=== PATIENT | male | born 1945 | race Caucasian/White ===

== ENCOUNTER 2018-07-15 06:35 | Day surgery (SDC) | payer MEDICARE, OTHER ==
[2018-07-14 16:15] LABS: CREATININE 0.8 mg/dL (0.5-1.5); POTASSIUM 4.5 mmol/L (3.5-5.1)
[2018-07-14 17:00] VITALS: BP 142/73
[2018-07-14] MEDS: CEFAZOLIN SODIUM 1 GM VIAL IVP SCH (17:45)
[2018-07-15] VITALS (14 sets, daily range): BP systolic 111–149; BP diastolic 55–74
[~2018-07-15] VITALS: Ht 188 cm; Wt 82.4 kg
[~2018-07-15 06:35] MED LIST: ALEN70TA10 PO; APIX5TAB PO; ASPI-555 PO; ATOR40TA71 PO; FAMILY TO BRING; HYDR-4068 PO; IPRA42SP NS; METO50TA9 PO; OXYB10TA PO; SERT50TA12 PO; TAMS0.4C32 PO; TRAZ-187 PO; ZOLP12.550 PO
[2018-07-15] MEDS ORDERED: LACTATED RINGERS 1000ML 1,000 ML IV ONE (07:57)
[2018-07-15] MEDS ORDERED: FENTANYL CITRATE PF 50 MCG/1 ML 2ML VIAL ONE ×2 (09:10→11:19)
[2018-07-15] MEDS ORDERED: PROPOFOL 10 MG/ML 20ML VIAL IV ONE (09:10)
[2018-07-15] MEDS ORDERED: MIDAZOLAM HCL 1 MG/ML 2ML VIAL ONE (09:10)
[2018-07-15] MEDS ORDERED: CEFAZOLIN SODIUM 1 GM VIAL ONE (09:12)
[2018-07-15] MEDS ORDERED: ROCURONIUM 10MG/1ML SYR 10 MG/ML ML ONE (09:17)
[2018-07-15] MEDS ORDERED: LIDOCAINE PF 2% 5ML ABBOJECT ONE (09:17)
[2018-07-15] MEDS ORDERED: BUPIVACAINE/PF 0.25% 30ML VIAL IJ ONE (09:39)
[2018-07-15] MEDS: CEFAZOLIN SODIUM 1 GM VIAL IVP SCH (09:55)
[2018-07-15] MEDS ORDERED: ONDANSETRON HCL 4 MG/2 ML VIAL ONE (10:03)
[2018-07-15] MEDS ORDERED: DEXAMETHASONE SOD PHOSPHATE 4 MG/ML 1ML VIAL ONE (10:03)
[2018-07-15] MEDS ORDERED: GLYCOPYRROLATE 1 MG/5 ML SYRINGE ONE (10:23)
[2018-07-15] MEDS ORDERED: EPHEDRINE SULFATE 50 MG/ML AMPULE ONE (10:24)
[2018-07-15] MEDS ORDERED: NEOSTIGMINE 5MG/5ML SYR IV ONE (12:03)
[2018-07-15] MEDS ORDERED: CEPH500B PO (12:24)
[2018-07-15] MEDS ORDERED: HYDR-4457 PO (12:24)
[2018-07-15] MEDS ORDERED: MORPHINE SULFATE 2 MG/ML 1ML SYG ONE (12:50)
[2018-07-15] MEDS ORDERED: MEPERIDINE-PF 25 MG/ML SYG ONE ×2 (13:05→13:18)
[2018-07-15] MEDS ORDERED: KETOROLAC TROMETHAMINE 30MG/ML ONE (13:18)
== END 2018-07-15 14:56 | disposition home or self-care (01) ==
LOC: DAH 06:35
PROVIDERS: ATTEND Orthopaedic Surgery
DX: M19.041 Primary osteoarthritis, right hand (principal); Z86.73 Personal history of transient ischemic attack (TIA), and cerebral infarction without residual deficits; M81.0 Age-related osteoporosis without current pathological fracture; I25.10 Atherosclerotic heart disease of native coronary artery without angina pectoris; Z79.899 Other long term (current) drug therapy; Z98.890 Other specified postprocedural states; D68.69 Other thrombophilia; G90.09 Other idiopathic peripheral autonomic neuropathy; I48.2 Chronic atrial fibrillation; I10 Essential (primary) hypertension; Z79.01 Long term (current) use of anticoagulants; Z98.84 Bariatric surgery status; K21.9 Gastro-esophageal reflux disease without esophagitis; E78.2 Mixed hyperlipidemia; F32.1 Major depressive disorder, single episode, moderate
CPT/HCPCS: 26850; 36415; 76000; 80048; A4218; A4606; A4649 ×2; A6223; C1713 ×5; J0690 ×2; J1100; J1885; J2001; J2175 ×2; J2250; J2405; J2704; J2710; J3010 ×2; J3490 ×2; J7120; Q4051

== ENCOUNTER → 2018-09-06 | Outpatient (CLI) | payer MEDICARE, OTHER ==
[~2018-09-06] MED LIST changes: +CEPH500B PO; +HYDR-4457 PO
== END | disposition home or self-care (01) ==
LOC: RAH 10:49
PROVIDERS: ATTEND Family Medicine
DX: S32.000A Wedge compression fracture of unspecified lumbar vertebra, initial encounter for closed fracture (principal); M51.06 Intervertebral disc disorders with myelopathy, lumbar region; M47.815 Spondylosis without myelopathy or radiculopathy, thoracolumbar region; J98.11 Atelectasis; X58.XXXA Exposure to other specified factors, initial encounter; Y93.89 Activity, other specified; Y92.89 Other specified places as the place of occurrence of the external cause; Y99.8 Other external cause status
CPT/HCPCS: 71046

== ENCOUNTER → 2018-10-03 | Outpatient (CLI) | payer MEDICARE, OTHER | END | disposition home or self-care (01) | LOC: OIH 10:05 | PROVIDERS: ATTEND Neuromusculoskeletal Medicine & OMM | DX: M85.88 Other specified disorders of bone density and structure, other site (principal); M47.812 Spondylosis without myelopathy or radiculopathy, cervical region; M48.02 Spinal stenosis, cervical region | CPT/HCPCS: 72040 ==

== ENCOUNTER → 2019-03-14 | Outpatient (CLI) | payer MEDICARE, OTHER ==
[~2019-03-14] MED LIST changes: -OXYB10TA PO; +OXYB10TA2 PO
== END | disposition home or self-care (01) ==
LOC: RAH 13:02
PROVIDERS: ATTEND Neuromusculoskeletal Medicine & OMM
DX: M48.56XA Collapsed vertebra, not elsewhere classified, lumbar region, initial encounter for fracture (principal); M40.294 Other kyphosis, thoracic region; M47.812 Spondylosis without myelopathy or radiculopathy, cervical region; M47.816 Spondylosis without myelopathy or radiculopathy, lumbar region; M48.07 Spinal stenosis, lumbosacral region; R29.6 Repeated falls; Z98.890 Other specified postprocedural states
CPT/HCPCS: 72128; 72131

== ENCOUNTER → 2019-09-14 | Outpatient (CLI) | payer MEDICARE ==
[~2019-09-14] MED LIST changes: -OXYB10TA2 PO; +OXYB10TA30 PO; +REGADENOSON 0.4 MG/5 ML PF SYG IVP SCH
== END | disposition home or self-care (01) ==
LOC: RAH 08:41
PROVIDERS: ATTEND Internal Medicine Cardiovascular Disease
DX: I20.9 Angina pectoris, unspecified (principal)
CPT/HCPCS: 78452; 93017; A9500 ×2; J2785; 96374

== ENCOUNTER 2020-03-29 13:47 | Inpatient (IN) | payer MEDICARE ==
[~2020-03-29] VITALS: Ht 188 cm; Wt 92.9 kg
[~2020-03-29 13:47] MED LIST changes: -ALEN70TA10 PO; +ALEN70TA69 PO; -ASPI-555 PO; +ASPI-556 PO; -REGADENOSON 0.4 MG/5 ML PF SYG IVP SCH; -ZOLP12.550 PO; +ZOLP12.555 PO
[2020-03-29] MEDS ORDERED: ONDANSETRON HCL 4 MG/2 ML VIAL ONE (14:13)
[2020-03-29] MEDS ORDERED: MORPHINE SULFATE 4 MG/1ML SYG ONE (14:13)
[2020-03-29] MEDS ORDERED: SODIUM CHLORIDE 0.9% 1000ML 1,000 ML IV ONE (16:00)
[2020-03-29 16:02] LABS: BASOPHILS % (AUTO) 0.1 % (0.0-5.0); EOSINOPHILS % (AUTO) 0.3 % (0.0-8.0); HEMATOCRIT 36.6 % (42-54); LYMPHOCYTES % (AUTO) 8.8 % (21.0-51.0); MEAN CORPUSCULAR HEMOGLOBIN 30.7 pg (27.0-33.0); MEAN CORPUSCULAR HGB CONC 32.5 g/dL (32.0-36.0); MEAN CORPUSCULAR VOLUME 94.6 fL (79-99); MONOCYTES % (AUTO) 7.3 % (3.0-13.0); NEUTROPHILS % (AUTO) 83.1 % (40.0-77.0); PLATELET COUNT (AUTO) 115 K/uL (130-400); RED BLOOD CELL COUNT(AUTO) 3.87 MIL/uL (4.50-6.20); WHITE BLOOD COUNT (AUTO) 6.8 K/uL (4.8-10.8)
[2020-03-29 16:14] LABS: POTASSIUM 3.8 mmol/L (3.5-5.1)
[2020-03-29 16:18] LABS: INR 0.95 (0.85-1.15); PARTIAL THROMBOPLASTIN TIME 25.8 SEC (26.3-35.5); PROTHROMBIN TIME 10.3 SEC (9.6-11.6)
[2020-03-29 16:19] LABS: BILIRUBIN,TOTAL 0.7 mg/dL (0.2-1.0)
[2020-03-29] MEDS ORDERED: HYDRALAZINE HCL 20 MG/ML VIAL IV PRN (17:15)
[2020-03-29] MEDS ORDERED: ACETAMINOPHEN 325 MG TAB PO PRN ×2 (17:15)
[2020-03-29] MEDS ORDERED: MEPERIDINE-PF 25 MG/ML SYG IV PRN (17:15)
[2020-03-29] MEDS ORDERED: ONDANSETRON HCL 4 MG/2 ML VIAL IV PRN (17:15)
[2020-03-29] MEDS: SODIUM CHLORIDE 0.9% 1000ML 1,000 ML IV SCH (17:15)
[2020-03-29] MEDS ORDERED: FAMOTIDINE/PF 20 MG/2 ML VIAL IV ONE (19:46)
[2020-03-29] MEDS ORDERED: MORPHINE SULFATE 2 MG/ML 1ML SYG ONE (19:46)
[2020-03-29] MEDS: FAMOTIDINE/PF 20 MG/2 ML VIAL IV SCH (21:00)
[2020-03-30] VITALS (7 sets, daily range): BP systolic 132–146; BP diastolic 57–68
--- NOTE | 2020-03-30 | NUR ---
ADMIT NOTE ADMIT TO ROOM 332 VIA STRETCHER FROM ER. PATIENT AWAKE, ALERT, OX3, NO SOB, NO C/O PAIN WITHOUT MOVEMENT, LEFT AC 18 GAUGE CATHETER PATENT WITH IVF INFUSING WELL, TEACH PATIENT PLAN OF CARE AND EXPECTED OUTCOME, PATIENT VERBALIZES UNDERSTANDING VIA TEACH BACK
[2020-03-30] MEDS ORDERED: BUPR-47 PO (00:05)
[2020-03-30] MEDS ORDERED: METO25TA6 PO (00:05)
[2020-03-30] MEDS ORDERED: ROSU20TA31 PO (00:05)
[2020-03-30] MEDS ORDERED: FURO20TA4 PO (00:05)
[2020-03-30] MEDS: MORPHINE SULFATE 2 MG/ML 1ML SYG IV PRN ×5 (03:56→20:07)
[2020-03-30] MEDS: SODIUM CHLORIDE 0.9% 1000ML 1,000 ML IV SCH ×2 (05:27→17:05)
[2020-03-30 05:49] LABS: BASOPHILS % (AUTO) 0.4 % (0.0-5.0); EOSINOPHILS % (AUTO) 2.4 % (0.0-8.0); LYMPHOCYTES % (AUTO) 13.5 % (21.0-51.0); MEAN CORPUSCULAR HEMOGLOBIN 30.1 pg (27.0-33.0); MEAN CORPUSCULAR HGB CONC 31.3 g/dL (32.0-36.0); MEAN CORPUSCULAR VOLUME 96.3 fL (79-99); MONOCYTES % (AUTO) 5.5 % (3.0-13.0); NEUTROPHILS % (AUTO) 77.8 % (40.0-77.0); PLATELET COUNT (AUTO) 105 K/uL (130-400); RED BLOOD CELL COUNT(AUTO) 4.05 MIL/uL (4.50-6.20); RED CELL DISTRIBUTION WIDTH 13.1 % (11.0-15.5); WHITE BLOOD COUNT (AUTO) 4.6 K/uL (4.8-10.8)
[2020-03-30 06:33] LABS: ALBUMIN 2.8 g/dL (3.5-5.0); BILIRUBIN,TOTAL 1.1 mg/dL (0.2-1.0); CREATININE 0.8 mg/dL (0.5-1.5); POTASSIUM 4.3 mmol/L (3.5-5.1); TOTAL PROTEIN, SERUM 5.8 g/dL (6.0-8.3)
[2020-03-30] MEDS: METOPROLOL TARTRATE 25 MG TAB PO SCH ×3 (08:47→20:12)
[2020-03-30] MEDS: FUROSEMIDE 20 MG TABLET PO SCH (08:47)
[2020-03-30] MEDS: FAMOTIDINE/PF 20 MG/2 ML VIAL IV SCH ×2 (08:47→20:07)
[2020-03-30] MEDS: **HM** BUPROPION XL 150MG PO SCH (09:00)
[2020-03-30] MEDS ORDERED: ALENDRONATE SODIUM 35 MG TAB PO SCH (09:00)
[2020-03-30 09:49] LABS: ACETAMINOPHEN 3 mcg/mL (10-29)
[2020-03-30 09:51] LABS: SALICYLATE < 2.8 mg/dL (2.8-20.0)
--- NOTE | 2020-03-30 10:12 | NUR ---
DR. LEDEZMA AWARE OF CONSULT MARKING MACHINE OPERATOR Nhung ARNOLD SPOKE TO MD VIA TELEPHONE REGARDING CONSULT.
--- NOTE | 2020-03-30 10:13 | NUR ---
DR. RASHEED AWARE OF CONSULT SPOKE TO MD VIA TELEPHONE REGARDING CONSULT.
--- NOTE | 2020-03-30 15:05 | NUR ---
MET WITH PATIENT AT BEDSIDE, FOR D/C PLANNING PATIENT LIVES WITH SPOUSE GINNY AND IS INDEPENDENT OF ADLS, DRIVES, AND USES MOBILITY AIDES NEEDED SUCH WALKER, ROLLATOR, W/CHAIR, AND CANE. NO PROVIDER OR HOME HEALTH SERVICES, HOME W/ SAFE & ACCESSIBLE WITH SHOWER CHAIR, STATES HAS BEEN TO [facility] IN THE PAST AND WOULD LIKE TO GO THERE AFTER SURGERY. FELIPA RECD AND PLACED IN CHART. IUPDATED PRIMARY RN TO LET HER KNOW THAT WILL POSSIBLE BE THE PLAN. Addendum: 03/30/20 at 1513 by LAVELLE CARREON RN Amended: Links added.
[2020-03-30 17:04] LABS: APPEARANCE,URINE Clear (CLEAR); BILIRUBIN,URINE Negative (NEGATIVE); COLOR,URINE Yellow (YELLOW); GLUCOSE, URINE (UA) Negative (NEGATIVE); KETONES,URINE Trace mg/dL (NEGATIVE); LEUKOCYTE ESTERASE ,URINE Negative (NEGATIVE); NITRATE,URINE Negative (NEGATIVE); OCCULT BLOOD,URINE Negative (NEGATIVE); PH,URINE 5.5 (5.0-8.0); PROTEIN,URINE Negative (NEGATIVE)
[2020-03-30 17:11] LABS: AMPHET/METH SCREEN,URINE NEGATIVE (NEGATIVE); BARBITURATE SCREEN, URINE NEGATIVE (NEGATIVE); BENZODIAZEPINES SCREEN,URINE NEGATIVE (NEGATIVE); CANNABINOID SCREEN,URINE NEGATIVE (NEGATIVE); COCAINE SCREEN,URINE NEGATIVE (NEGATIVE); OPIATE SCREEN,URINE POSITIVE (NEGATIVE); PHENCYCLIDINE SCREEN,URINE NEGATIVE (NEGATIVE)
[2020-03-30 17:48] LABS: ALBUMIN 2.9 g/dL (3.5-5.0); BILIRUBIN,DIRECT 0.3 mg/dL (0.0-0.3); TOTAL PROTEIN, SERUM 5.9 g/dL (6.0-8.3)
[2020-03-30] MEDS: APIXABAN 5 MG TABLET PO SCH (20:07)
[2020-03-30] MEDS: OXYBUTYNIN 5 MG TAB.SR.24H PO SCH (20:07)
[2020-03-30] MEDS: TAMSULOSIN HCL 0.4 MG CAP.ER.24H PO SCH (20:07)
[2020-03-30] MEDS ORDERED: ATORVASTATIN CALCIUM 40 MG TABLET PO SCH (21:00)
[2020-03-31] MEDS: MORPHINE SULFATE 2 MG/ML 1ML SYG IV PRN ×5 (00:16→16:46)
[2020-03-31 04:18] VITALS: BP 126/60
[2020-03-31 05:36] LABS: BASOPHILS % (AUTO) 0.3 % (0.0-5.0); EOSINOPHILS % (AUTO) 1.3 % (0.0-8.0); HEMATOCRIT 38.5 % (42-54); LYMPHOCYTES % (AUTO) 10.2 % (21.0-51.0); MEAN CORPUSCULAR HEMOGLOBIN 30.2 pg (27.0-33.0); MEAN CORPUSCULAR HGB CONC 31.4 g/dL (32.0-36.0); MONOCYTES % (AUTO) 7.6 % (3.0-13.0); NEUTROPHILS % (AUTO) 80.1 % (40.0-77.0); PLATELET COUNT (AUTO) 102 K/uL (130-400); RED BLOOD CELL COUNT(AUTO) 4.01 MIL/uL (4.50-6.20); WHITE BLOOD COUNT (AUTO) 7.6 K/uL (4.8-10.8)
[2020-03-31 05:47] LABS: ALBUMIN 2.5 g/dL (3.5-5.0); BILIRUBIN,TOTAL 1.4 mg/dL (0.2-1.0); CREATININE 0.9 mg/dL (0.5-1.5); MAGNESIUM 1.9 mg/dL (1.80-2.40); POTASSIUM 4.3 mmol/L (3.5-5.1); TOTAL PROTEIN, SERUM 5.7 g/dL (6.0-8.3)
[2020-03-31] MEDS ORDERED: ALENDRONATE SODIUM 35 MG TAB PO SCH (07:30)
[2020-03-31 07:52] VITALS: BP 123/54
[2020-03-31] MEDS: APIXABAN 5 MG TABLET PO SCH ×2 (08:25→20:30)
[2020-03-31] MEDS: METOPROLOL TARTRATE 25 MG TAB PO SCH ×3 (08:25→20:30)
[2020-03-31] MEDS: FAMOTIDINE 20MG TAB 20 MG TAB PO SCH ×2 (08:25→20:30)
[2020-03-31] MEDS: FUROSEMIDE 20 MG TABLET PO SCH (08:28)
[2020-03-31] MEDS: **HM** BUPROPION XL 150MG PO SCH (08:29)
[2020-03-31] MEDS: SODIUM CHLORIDE 0.9% 1000ML 1,000 ML IV SCH ×2 (09:15→17:36)
[2020-03-31 12:09] VITALS: BP 129/64
[2020-03-31 16:31] VITALS: BP 123/69
[2020-03-31] MEDS ORDERED: POLYETHYLENE GLYCOL 3350 17 GM POWD.PACK ONE (16:56)
[2020-03-31] MEDS: POLYETHYLENE GLYCOL 3350 17 GM POWD.PACK PO SCH (17:00)
[2020-03-31] MEDS ORDERED: SENNOSIDES 8.6 MG TABLET PO SCH (17:15)
[2020-03-31 20:18] VITALS: BP 117/66
[2020-03-31] MEDS: OXYBUTYNIN 5 MG TAB.SR.24H PO SCH (20:30)
[2020-03-31] MEDS: TAMSULOSIN HCL 0.4 MG CAP.ER.24H PO SCH (20:30)
[2020-03-31 23:59] VITALS: BP 133/76
[2020-04-01] MEDS: MORPHINE SULFATE 2 MG/ML 1ML SYG IV PRN ×6 (00:53→21:16)
[2020-04-01 04:09] VITALS: BP 146/72
[2020-04-01 06:28] LABS: BASOPHILS % (AUTO) 0.3 % (0.0-5.0); EOSINOPHILS % (AUTO) 1.5 % (0.0-8.0); HEMATOCRIT 38.9 % (42-54); LYMPHOCYTES % (AUTO) 12.6 % (21.0-51.0); MEAN CORPUSCULAR HGB CONC 31.9 g/dL (32.0-36.0); NEUTROPHILS % (AUTO) 75.2 % (40.0-77.0); PLATELET COUNT (AUTO) 101 K/uL (130-400); RED BLOOD CELL COUNT(AUTO) 4.14 MIL/uL (4.50-6.20); RED CELL DISTRIBUTION WIDTH 12.9 % (11.0-15.5); WHITE BLOOD COUNT (AUTO) 7.1 K/uL (4.8-10.8)
[2020-04-01 06:46] LABS: ALBUMIN 2.3 g/dL (3.5-5.0); BILIRUBIN,TOTAL 1.2 mg/dL (0.2-1.0); CREATININE 0.7 mg/dL (0.5-1.5); POTASSIUM 4.1 mmol/L (3.5-5.1); TOTAL PROTEIN, SERUM 5.9 g/dL (6.0-8.3)
[2020-04-01 08:05] VITALS: BP 156/67
[2020-04-01] MEDS: **HM** BUPROPION XL 150MG PO SCH (08:58)
[2020-04-01] MEDS ORDERED: SENNOSIDES 8.6 MG TABLET PO SCH (09:00)
[2020-04-01] MEDS: FAMOTIDINE 20MG TAB 20 MG TAB PO SCH ×2 (09:02→21:07)
[2020-04-01] MEDS: APIXABAN 5 MG TABLET PO SCH ×2 (09:02→21:07)
[2020-04-01] MEDS: METOPROLOL TARTRATE 25 MG TAB PO SCH ×3 (09:02→21:07)
[2020-04-01] MEDS: POLYETHYLENE GLYCOL 3350 17 GM POWD.PACK PO SCH (09:03)
[2020-04-01] MEDS: FUROSEMIDE 20 MG TABLET PO SCH (09:03)
[2020-04-01 11:45] VITALS: BP 153/82
--- NOTE | 2020-04-01 14:01 | NUR ---
NUTRITION EDUCATION RD provided Osteoporosis nutrition education. Pt listed nutritional supplements/medications (Iron, Vitamin C, Vitamin D, Alendronate sodium). RD discussed Vitamin D, Calcium, and mineral rich foods with Pt. All Pt questions were answered. Pt verbalized understanding. RD encouraged Pt to notify as additional nutrition questions or concerns arise. Addendum: 04/01/20 at 1410 [address]ÓN [address]Z [address] RD Amended: Links added.
--- NOTE | 2020-04-01 14:10 | NUR ---
NUTRITION NOTE: Pt admitted s/p fall with intractable right Hip pain. Pt history of osteoporosis. Pt reports unable to have surgery. Senna and miralax medications in place. Pt with improving appetite. Pt still agrees to nutrition supplementation with Chocolate Ensure BID. Monitored labs: Ca 8.0, T. Bili 1.2, AST 42. ALT 198, Alk 189, Alb 2.3. Recommend Ensure BID RD to continue to monitor. Please notify as additional nutrition concerns arise.
[2020-04-01] MEDS ORDERED: HYDROMORPHONE HCL 0.5 MG/0.5 ML ML IVP SCH (14:45)
[2020-04-01] MEDS: LUBIPROSTONE 24 MCG CAP PO SCH ×2 (16:08→17:00)
[2020-04-01 16:17] VITALS: BP 136/57
[2020-04-01] MEDS ORDERED: LIDOCAINE 5% TOPICAL PATCH TP PRN (17:00)
[2020-04-01] MEDS ORDERED: CYCLOBENZAPRINE HCL 10 MG TABLET PO PRN (17:15)
--- NOTE | 2020-04-01 18:00 | NUR ---
DCING TO [facility] VIA EMS TONIGHT Addendum: 04/02/20 at 0851 by LAVELLE CARREON RN CM Amended: Links added.
--- NOTE | 2020-04-01 19:38 | NUR ---
REPORT GIVEN TO RENATO SAL RN FROM [facility] . MED REC WAS FAXED INCLUDING PIN SCRIPT FOR TRAMADOL ,FLEXIRL AND LIDOCAINE PATCH .ALSO LET HIM KNOW PATIENT WILL BE USINBG HIS OWN CPAP MACHINE AND USES 02 AT 2L/MIN PRN .. PATIENT IS AWAKE AND ALERT .VITAL SIGNS STABLE AT DISCHARGE
[2020-04-01] MEDS: TAMSULOSIN HCL 0.4 MG CAP.ER.24H PO SCH (21:07)
[2020-04-01] MEDS: OXYBUTYNIN 5 MG TAB.SR.24H PO SCH (21:07)
[2020-04-01 22:07] LABS: HEPATITIS A ANTIBODY IGM Negative (Negative); HEPATITIS B CORE IGM Negative (Negative); HEPATITIS Bs ANTIGEN SCREEN P Negative (Negative)
--- NOTE | 2020-04-01 22:23 | NUR ---
DISCHARGE PATIENT LEFT VIA EMS TO [facility] ALL BELONGINGS AND PAPERWORK AT SIDE.
== END 2020-04-01 22:23 | DRG 536 ==
LOC: EDH 13:47 → EDHIP 17:12 → 3AH 23:41
PROVIDERS: ADMIT Hospitalist; ATTEND Hospitalist
DX: S32.401A Unspecified fracture of right acetabulum, initial encounter for closed fracture (principal); I48.20 Chronic atrial fibrillation, unspecified; B17.9 Acute viral hepatitis, unspecified; Z79.01 Long term (current) use of anticoagulants; E78.5 Hyperlipidemia, unspecified; G89.4 Chronic pain syndrome; I10 Essential (primary) hypertension; J44.9 Chronic obstructive pulmonary disease, unspecified; J98.4 Other disorders of lung; K57.30 Diverticulosis of large intestine without perforation or abscess without bleeding; K59.03 Drug induced constipation; K76.0 Fatty (change of) liver, not elsewhere classified; W01.0XXA Fall on same level from slipping, tripping and stumbling without subsequent striking against object, initial encounter; M54.5 Low back pain; Z20.828 Contact with and (suspected) exposure to other viral communicable diseases; T39.1X5A Adverse effect of 4-Aminophenol derivatives, initial encounter; T40.2X5A Adverse effect of other opioids, initial encounter; Z82.0 Family history of epilepsy and other diseases of the nervous system; Z82.3 Family history of stroke; Z82.49 Family history of ischemic heart disease and other diseases of the circulatory system; Z82.5 Family history of asthma and other chronic lower respiratory diseases; Z83.3 Family history of diabetes mellitus; Z86.73 Personal history of transient ischemic attack (TIA), and cerebral infarction without residual deficits; Z95.0 Presence of cardiac pacemaker; Z98.84 Bariatric surgery status; Y93.89 Activity, other specified; Y92.89 Other specified places as the place of occurrence of the external cause; Y99.8 Other external cause status; Z90.49 Acquired absence of other specified parts of digestive tract
CPT/HCPCS: 36415; 71045; 72170; 72192; 73502; 76705; 80053; 80074; 80076; 80305; 81003; 82550; 83735; 83880; 84484; 85025; 85610; 85730; 87426; 93005; 97039; G0378; G0481; J1170; J2175; J2270; J2405; J3490; J7030

== ENCOUNTER 2020-04-10 17:16 | Emergency (ER) | payer MEDICARE ==
[~2020-04-10 17:16] MED LIST changes: -ASPI-556 PO; -ATOR40TA71 PO; +BUPR-47 PO; -CEPH500B PO; -FAMILY TO BRING; +FURO20TA4 PO; -HYDR-4457 PO; -IPRA42SP NS; +METO25TA6 PO; -METO50TA9 PO; +ROSU20TA31 PO; -SERT50TA12 PO; -TRAZ-187 PO; -ZOLP12.555 PO
[2020-04-10 18:52] LABS: CREATININE 0.7 mg/dL (0.5-1.5); POTASSIUM 3.2 mmol/L (3.5-5.1)
[2020-04-10 19:09] LABS: APPEARANCE,URINE CLOUDY (CLEAR); BILIRUBIN,URINE NEGATIVE (NEGATIVE); COLOR,URINE YELLOW (YELLOW); GLUCOSE, URINE (UA) NEGATIVE (NEGATIVE); KETONES,URINE 15 mg/dL (NEGATIVE); LEUKOCYTE ESTERASE ,URINE MODERATE (NEGATIVE); NITRATE,URINE POSITIVE (NEGATIVE); OCCULT BLOOD,URINE LARGE (NEGATIVE); PROTEIN,URINE 100 mg/dL (NEGATIVE)
[2020-04-10 19:22] LABS: BACTERIA,URINE Few /HPF (None Seen)
[2020-04-10 19:23] LABS: MUCUS,URINE Rare LPF (None Seen); SQUAMOUS EPITHELIAL CELL,UR Rare /HPF (0-2); WBC,URINE 51-100 /HPF (0-1)
[2020-04-10] MEDS ORDERED: LIDOCAINE HCL 2% JELLY 5 ML ONE (20:13)
[2020-04-10] MEDS ORDERED: CEFTRIAXONE SODIUM 2 GM VIAL ONE (20:35)
[2020-04-10] MEDS ORDERED: SODIUM CHLORIDE 0.9% 500ML 500 ML IV ONE (20:36)
[2020-04-10] MEDS ORDERED: SODIUM CHLORIDE 0.9% 50 ML IV ONE (20:36)
[2020-04-10] MEDS ORDERED: DICYCLOMINE HCL 20 MG TAB ONE (20:36)
[2020-04-10 21:08] LABS: BASOPHILS % (AUTO) 0.6 % (0.0-5.0); EOSINOPHILS % (AUTO) 2.6 % (0.0-8.0); LYMPHOCYTES % (AUTO) 17.2 % (21.0-51.0); MEAN CORPUSCULAR HEMOGLOBIN 29.7 pg (27.0-33.0); MEAN CORPUSCULAR HGB CONC 31.7 g/dL (32.0-36.0); MEAN CORPUSCULAR VOLUME 93.8 fL (79-99); MONOCYTES % (AUTO) 6.7 % (3.0-13.0); NEUTROPHILS % (AUTO) 72.2 % (40.0-77.0); PLATELET COUNT (AUTO) 292 K/uL (130-400); RED BLOOD CELL COUNT(AUTO) 4.37 MIL/uL (4.50-6.20); RED CELL DISTRIBUTION WIDTH 12.8 % (11.0-15.5); WHITE BLOOD COUNT (AUTO) 9.1 K/uL (4.8-10.8)
[2020-04-10] MEDS ORDERED: TAMSULOSIN HCL 0.4 MG CAP.ER.24H ONE (22:21)
[2020-04-10] MEDS ORDERED: KETOROLAC TROMETHAMINE 30MG/ML ONE (22:21)
== END 2020-04-11 01:25 | disposition home or self-care (01) ==
LOC: EDH 17:16
DX: T83.038A Leakage of other urinary catheter, initial encounter (principal); N39.0 Urinary tract infection, site not specified; R33.9 Retention of urine, unspecified; I10 Essential (primary) hypertension; E78.00 Pure hypercholesterolemia, unspecified; Y73.8 Miscellaneous gastroenterology and urology devices associated with adverse incidents, not elsewhere classified; Y92.89 Other specified places as the place of occurrence of the external cause
CPT/HCPCS: 36415; 51702; 74176; 80048; 81001; 83605; 85025; 87077; 87088; 87186; 96374; 96375; 99284; J0696; J1885; J7040; 51701

== ENCOUNTER 2020-07-15 06:04 | Day surgery (SDC) | payer MEDICARE ==
[2020-07-11 09:44] LABS: BASOPHILS % (AUTO) 0.4 % (0.0-5.0); EOSINOPHILS % (AUTO) 2.1 % (0.0-8.0); HEMATOCRIT 44.8 % (42-54); LYMPHOCYTES % (AUTO) 25.1 % (21.0-51.0); MEAN CORPUSCULAR HEMOGLOBIN 28.9 pg (27.0-33.0); MEAN CORPUSCULAR HGB CONC 31.5 g/dL (32.0-36.0); MEAN CORPUSCULAR VOLUME 91.8 fL (79-99); PLATELET COUNT (AUTO) 170 K/uL (130-400); RED BLOOD CELL COUNT(AUTO) 4.88 MIL/uL (4.50-6.20); RED CELL DISTRIBUTION WIDTH 14.3 % (11.0-15.5); WHITE BLOOD COUNT (AUTO) 6.8 K/uL (4.8-10.8)
[2020-07-11 10:02] LABS: CREATININE 1.1 mg/dL (0.5-1.5); POTASSIUM 4.6 mmol/L (3.5-5.1)
[2020-07-12 13:20] VITALS: BP 140/71
[2020-07-15] VITALS (17 sets, daily range): BP systolic 120–150; BP diastolic 53–77
[~2020-07-15] VITALS: Ht 185.4 cm; Wt 92.4 kg
[~2020-07-15 06:04] MED LIST changes: -ALEN70TA69 PO; +ALEN70TA80 PO; +BUPR-317 PO; -BUPR-47 PO
[2020-07-15] MEDS ORDERED: CEFAZOLIN SODIUM 1 GM VIAL ONE ×2 (06:27→09:53)
[2020-07-15] MEDS ORDERED: LACTATED RINGERS 1000ML 1,000 ML IV ONE (06:27)
[2020-07-15] MEDS ORDERED: GLYCOPYRROLATE 1 MG/5 ML SYRINGE ONE (07:55)
[2020-07-15] MEDS ORDERED: LIDOCAINE PF 100MG/5ML (2%) SYRINGE 5ML ONE (07:55)
[2020-07-15] MEDS ORDERED: DEXAMETHASONE SOD PHOSPHATE 4 MG/ML 1ML VIAL ONE (07:55)
[2020-07-15] MEDS ORDERED: SUCCINYLCHOLINE CHLORIDE 20 MG/ML 10 ML VIAL ONE (07:55)
[2020-07-15] MEDS ORDERED: NEOSTIGMINE 5MG/5ML SYR IV ONE (07:56)
[2020-07-15] MEDS ORDERED: ROCURONIUM 10MG/1ML SYR 10 MG/ML ML ONE (07:56)
[2020-07-15] MEDS ORDERED: ONDANSETRON 4MG INJ ONE (07:56)
[2020-07-15] MEDS ORDERED: FENTANYL CITRATE PF 50 MCG/1 ML 2ML VIAL ONE (07:56)
[2020-07-15] MEDS ORDERED: PROPOFOL 10 MG/ML 20ML VIAL IV ONE (07:56)
[2020-07-15] MEDS ORDERED: EPHEDRINE SULFATE 50 MG/ML AMPULE ONE (09:22)
[2020-07-15] MEDS ORDERED: BUPIVACAINE/PF 0.5% 10ML VIAL ONE (09:54)
[2020-07-15] MEDS ORDERED: CEPH500B PO (12:32)
[2020-07-15] MEDS ORDERED: MEPERIDINE-PF 25 MG/ML SYG ONE ×2 (12:45→12:58)
== END 2020-07-15 14:30 | disposition home or self-care (01) ==
LOC: DAH 06:04
PROVIDERS: ATTEND Orthopaedic Surgery
DX: M18.12 Unilateral primary osteoarthritis of first carpometacarpal joint, left hand (principal); Z20.822 Contact with and (suspected) exposure to COVID-19; G89.29 Other chronic pain; I10 Essential (primary) hypertension; E78.5 Hyperlipidemia, unspecified; F17.200 Nicotine dependence, unspecified, uncomplicated; M81.0 Age-related osteoporosis without current pathological fracture; Z86.73 Personal history of transient ischemic attack (TIA), and cerebral infarction without residual deficits; Z98.890 Other specified postprocedural states; Z98.84 Bariatric surgery status; Z79.899 Other long term (current) drug therapy
CPT/HCPCS: 26841; 36415; 73140; 80048; 85025; 93005; A4215; A4221; A4222; A4223; A4565; A4649 ×4; A4663; A4930; A6223; C1713 ×7; C9803; J0330; J0690 ×2; J1100; J2001; J2175 ×2; J2405; J2704; J2710; J3010; J3490 ×2; J7120; Q4051; U0003

== ENCOUNTER → 2020-12-04 | Outpatient (CLI) | payer MEDICARE ==
[~2020-12-04] MED LIST changes: +CEPH500B PO
== END | disposition home or self-care (01) ==
LOC: OIH 08:14
PROVIDERS: ATTEND Family Medicine
DX: M50.31 Other cervical disc degeneration, high cervical region (principal); M85.80 Other specified disorders of bone density and structure, unspecified site; M40.294 Other kyphosis, thoracic region; M48.02 Spinal stenosis, cervical region; J84.10 Pulmonary fibrosis, unspecified; W19.XXXA Unspecified fall, initial encounter; Y93.89 Activity, other specified; Y92.89 Other specified places as the place of occurrence of the external cause; Y99.8 Other external cause status; Z87.81 Personal history of (healed) traumatic fracture
CPT/HCPCS: 71046; 72040; 72070